=== PATIENT | female | born 1935 | race American Indian/Alaskan Native ===

== ENCOUNTER 2016-08-23 14:16 | Emergency (ER) | payer MEDICARE ==
[2016-08-23 14:17] VITALS: BMI 30.2
[2016-08-23 14:28] VITALS: TEMP 98
--- NOTE | 2016-08-23 17:20 | C.PDOC ---
History Of Present Illness <Hwaa Galvan DO - Last Filed: 08/23/16 17:42> <Humberto Barros - Last Filed: 08/23/16 18:54> Patient is an 80 year old female with past medical history of HTN, HLD, DM who presents to the ED with complaint of dizziness for the past year. Patient states she has had multiple tests for the dizziness but she has not been given a diagnosis. Patient has had MRI, MRA, lumbar puncture in the past. Patient was seeing Dr. Nile Kaplan but has not followed up in many months. Patient states that she last saw her PMD Dr. Amato on 08/21/16 and he did a type of maneuver with her head that made her vomit. Patient states that Dr. Amato instructed her to come to the hospital at that time but patient did not come until today. Patient states that she was also told to see neurologist Dr. Mueller. Patient states that her dizziness has gotten worse in that she now feels the room spinning even while laying down. Patient reports stumbling but no falls. Patient also reports blurred vision that began at the same time of her dizziness. Patient denies nausea, vomiting aside from episode at PMD's office, recent illness, fever, chills. (Hawa Galvan DO) History Per: Patient History/Exam Limitations: no limitations Onset/Duration Of Symptoms: Persistent, Other (one year) Current Symptoms Are (Timing): Still Present Activity At Onset Of Symptoms: Lying, Sitting, Standing, Walking, Change In Head Position Associated Symptoms Preceding Syncopal Episode: Vertigo Worse With Change In Head Position Seizure Or Post-ictal Symptoms: None <Hawa Galvan DO - Last Filed: 08/23/16 17:42> <Humberto Barros - Last Filed: 08/23/16 18:54> Time Seen by Provider: 08/23/16 16:11 Chief Complaint (Nursing): Dizziness/Lightheaded Past Medical History - Medical History PMH: Arthritis, Diabetes, HTN Denies: Chronic Kidney Disease Surgical History: Appendectomy, Endoscopy Family History: States: Unknown Family Hx - Social History Hx Tobacco Use: No Hx Alcohol Use: No Hx Substance Use: No - Immunization History Hx Tetanus Toxoid Vaccination: No Hx Influenza Vaccination: Yes Hx Pneumococcal Vaccination: No <Haaw Galvan DO - Last Filed: 08/23/16 17:42> Vital Signs: Last Vital Signs Temp 98 F 08/23/16 14:21 Pulse 83 08/23/16 14:21 Resp 20 08/23/16 14:21 BP 182/75 H 08/23/16 14:21 Pulse Ox 96 08/23/16 17:43 - [facility] Procedures CLOSED ENDOSCOPIC BIOPSY OF LARGE INTESTINE (06/17/13) ESOPHAGOGASTRODUODENOSCOPY [EGD] W/CLOSED BIOPSY (06/17/13) Review Of Systems Constitutional: Negative for: Fever, Chills Eyes: Positive for: Vision Change Cardiovascular: Negative for: Chest Pain, Palpitations Respiratory: Negative for: Cough, Shortness of Breath Gastrointestinal: Negative for: Nausea, Vomiting, Abdominal Pain Genitourinary: Negative for: Dysuria Musculoskeletal: Positive for: Back Pain. Negative for: Neck Pain Neurological: Positive for: Dizziness <Hawa Galvan DO - Last Filed: 08/23/16 17:42> Physical Exam - Physical Exam Appears: Well, Non-toxic, No Acute Distress Skin: Warm, Dry Head: Atraumatic, Normacephalic Eye(s): bilateral: PERRL, EOMI, left: Other (unidirectional nystagmus) Ear(s): Bilateral: TM Obscured By Wax Nose: Normal Oral Mucosa: Moist Tongue: Normal Appearing Lips: Normal Appearing Teeth: Dentures Cardiovascular: Rhythm Regular Respiratory: Normal Breath Sounds Gastrointestinal/Abdominal: Bowel Sounds, Soft, No Tenderness Extremity: No Pedal Edema Neurological/Psych: Oriented x3, Normal Cranial Nerves <Hawa Galvan DO - Last Filed: 08/23/16 17:42> ED Course And Treatment O2 Sat by Pulse Oximetry: 96 <Hawa Galvan DO - Last Filed: 08/23/16 17:42> - Laboratory Results Result Diagrams: 08/23/16 18:22 08/23/16 18:22 <Humberto Barros - Last Filed: 08/23/16 18:54> Medical Decision Making <Hawa Galvan DO - Last Filed: 08/23/16 17:42> <Humberto Barros - Last Filed: 08/23/16 18:54> Medical Decision Making: Provider Attestation: Patient seen and evaluated with the resident. I have reviewed the chart and agree that the record accurately reflects my personal performance of the history , physical exam, medical decision making, and the department course for this patient. I have also personally directed, reviewed, and agree with the discharge instructions and disposition. Disc w Dr Amato who knows the pt well and says she has been worked up extensively for this complaint including MRI and spinal tap. For my exam the pt has fatigueable rightward nystagmus and no cerebellar signs or CN problems. Consistent w peripheral vertigo. She is well-appearing, no distress, sitting up , eating a sandwich. Disc w pt plan for f/u w pcp and neurology and rtr. ( Humberto Barros) Disposition <Hawa Galvan DO - Last Filed: 08/23/16 17:42> - Disposition Disposition Time: 18:52 <Humberto Barros - Last Filed: 08/23/16 18:54> - Disposition Disposition: HOME/ ROUTINE Condition: STABLE Additional Instructions: Please follow up with your doctor and with the neurologist. Return to the ER for any worsening symptoms or for any other concerns. Prescriptions: LORazepam [Ativan] 0.5 mg PO Q8H PRN #8 tab PRN Reason: Dizziness Meclizine [Antivert] 25 mg PO Q8H PRN #30 tab PRN Reason: Dizziness Instructions: Vertigo (ED), Benign Paroxysmal Positional Vertigo (ED) Forms: General Discharge Instructions - Clinical Impression Clinical Impression: Vertigo
[2016-08-23 18:27] LABS: BASO # 0.1 K/uL (0.0-0.2); BASO % 0.8 % (0.0-2.0); EOS # 0.1 K/uL (0.0-0.7); EOS % 1.1 % (0.0-4.0); LYMPH # 2.1 K/uL (1.0-4.3); LYMPH % 33.7 % (20.0-40.0); MEAN CORPUSCULAR HEMOGLOBIN 29.9 pg (27.0-31.0); MEAN CORPUSCULAR HGB CONC 32.5 g/dL (33.0-37.0); MEAN PLATELET VOLUME 8.7 fL (7.2-11.7); MONO # 0.6 K/uL (0.0-0.8); MONO % 9.1 % (0.0-10.0); RED CELL DISTRIBUTION WIDTH 14.8 % (11.5-14.5); WHITE BLOOD COUNT 6.3 K/uL (4.8-10.8)
[2016-08-23 18:35] LABS: POTASSIUM 4.2 mmol/L (3.6-5.2)
[2016-08-23 18:37] LABS: ALB/GLOB RATIO 1.1 (1.0-2.1); BILIRUBIN,TOTAL 0.4 mg/dL (0.2-1.3); TOTAL PROTEIN 7.9 g/dL (6.3-8.3)
[2016-08-23 19:06] VITALS: BP 180/70; PULSE 72; RESP 18; O2SAT 99
== END 2016-08-23 19:06 | disposition home or self-care (01) ==
LOC: C.ER 14:16
DX: R42 Dizziness and giddiness (principal)